=== PATIENT | female | born 1935 | race Caucasian/White ===

== ENCOUNTER → 2017-06-30 | Outpatient (CLI) | payer MEDICARE, OTHER ==
[2017-06-30 13:28] LABS: CH 30.8; CHCM 32.4; HCT 43.8 % (34.0-46.0); HDW 2.18; HGB 14.5 gm/dL (11.4-16.0); MCH 31.6 pg (25.0-35.0); MCHC 33.2 g/dL (31.0-37.0); MCV 95.4 fL (80.0-100.0); RBC 4.59 m/uL (3.80-5.40); RDW 13.5 % (11.5-15.5); WBC 5.9 k/uL (3.8-10.6)
[2017-06-30 13:43] LABS: ALT 34 U/L (9-52); AST 21 U/L (14-36); Alkaline Phosphatase 74 U/L (38-126); Anion Gap 8 mmol/L; Blood Urea Nitrogen 13 mg/dL (7-17); Calcium 9.2 mg/dL (8.4-10.2); Carbon Dioxide 29 mmol/L (22-30); Chloride 99 mmol/L (98-107); Glucose 86 mg/dL (74-99); Non-African American GFR(MDRD) >60 (>60 ml/min/1.73 sqM); Potassium 4.3 mmol/L (3.5-5.1); Sodium 136 mmol/L (137-145); Total Bilirubin 0.4 mg/dL (0.2-1.3); Total Protein 7.1 g/dL (6.3-8.2)
[2017-06-30 14:54] LABS: Erythrocyte Sedimentation Rate 2 mm/hr (0-20)
[2017-06-30 20:29] LABS: ANA w/Reflex to Titer POSITIVE (NEGATIVE)
== END | disposition home or self-care (01) ==
LOC: LABWHC1 12:33
PROVIDERS: ATTEND Dermatology Dermatopathology
DX: L30.9 Dermatitis, unspecified (principal)
CPT/HCPCS: 36415; 80053; 85027; 85652; 86038; 86039

== ENCOUNTER → 2017-07-14 | Outpatient (CLI) | payer MEDICARE, OTHER ==
[2017-07-15 20:46] LABS: RNP AB Interpretation NEGATIVE (NEGATIVE)
== END | disposition home or self-care (01) ==
LOC: LABWHC1 11:03
PROVIDERS: ATTEND Dermatology Dermatopathology
DX: M32.8 Other forms of systemic lupus erythematosus (principal)
CPT/HCPCS: 36415; 86225; 86235